=== PATIENT | female | born 1985 | race American Indian/Alaskan Native ===

== ENCOUNTER 2018-08-23 10:47 | Inpatient (IN) | payer OTHER ==
[~2018-08-23] VITALS: Ht 175.3 cm; Wt 198.0 kg
== END 2018-08-27 14:41 | DRG 774 ==
LOC: OBS/DEL 10:47 → LDR 08-24 12:41 → OB/GYN 08-26 17:04
PROC: 4A1HXCZ Monitoring of Products of Conception, Cardiac Rate, External Approach (ICD-10-PCS; 2018-08-24)
PROC: B246ZZZ Ultrasonography of Right and Left Heart (ICD-10-PCS; 2018-08-25)
PROC: 10E0XZZ Delivery of Products of Conception, External Approach (ICD-10-PCS; principal; 2018-08-26)
PROC: 3E033VJ Introduction of Other Hormone into Peripheral Vein, Percutaneous Approach (ICD-10-PCS; 2018-08-26)
PROC: 4A033R1 Measurement of Arterial Saturation, Peripheral, Percutaneous Approach (ICD-10-PCS; 2018-08-26)
DX: O99.42 Diseases of the circulatory system complicating childbirth (principal); O99.113 Other diseases of the blood and blood-forming organs and certain disorders involving the immune mechanism complicating pregnancy, third trimester; O98.513 Other viral diseases complicating pregnancy, third trimester; I48.0 Paroxysmal atrial fibrillation; O99.013 Anemia complicating pregnancy, third trimester; D64.89 Other specified anemias; D69.49 Other primary thrombocytopenia; B34.9 Viral infection, unspecified; Z37.0 Single live birth; Z3A.37 37 weeks gestation of pregnancy